=== PATIENT | female | born 2000 | race American Indian/Alaskan Native ===

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

== ENCOUNTER 2019-01-31 19:18 | Outpatient (CLI) | payer MEDICAID ==
[2019-01-31 21:19] LABS: Basophils % (Auto) 0.3 % (0.0-1.8); Eosinophils # (Auto) 0.1 K/mm3 (0.0-0.4); Eosinophils % (Auto) 0.6 % (0.0-4.3); Hematocrit 30.8 % (30.3-42.9); Hemoglobin 10.2 gm/dl (10.1-14.3); Lymphocytes # (Auto) 1.8 K/mm3 (1.2-5.4); Lymphocytes % (Auto) 21.3 % (13.4-35.0); Mean Corpuscular HGB Conc 33 % (30-34); Mean Corpuscular Volume 87 fl (79-97); Monocytes # (Auto) 0.7 K/mm3 (0.0-0.8); Monocytes % (Auto) 7.6 % (0.0-7.3); Platelet Count 200 K/mm3 (140-440); Red Blood Count 3.55 M/mm3 (3.65-5.03); Red Cell Distribution Width 13.5 % (13.2-15.2)
[2019-01-31 22:29] VITALS: BP 138/91
--- NOTE | 2019-01-31 22:40 | Ultrasound Report ---
ULTRASOUND OBSTETRIC LIMITED ULTRASOUND BIOPHYSICAL PROFILE INDICATION / CLINICAL INFORMATION: Rule out abruption. COMPARISON: None available. FINDINGS: BREATHING MOVEMENT = 2 GROSS BODY MOVEMENT = 2 TONE = 2 QUALITATIVE AMNIOTIC FLUID VOLUME = 2 TOTAL BIOPHYSICAL SCORE = 8/8 AMNIOTIC FLUID INDEX (cm) = 10.9 PRESENTATION: Cephalic. HEART RATE (beats per minute): 129 ADDITIONAL FINDINGS: Placenta is anterior right lateral grade 1 without previa. IMPRESSION: 1. Biophysical Score = 8/8 2. No placenta previa or abruption Signer Name: Robby Gant MD Signed: 01/31/2019 10:35 PM Workstation Name: [id number]
== END 2019-01-31 22:44 | disposition home or self-care (01) ==
LOC: TRG 19:18
PROVIDERS: ATTEND Obstetrics & Gynecology
DX: O46.93 Antepartum hemorrhage, unspecified, third trimester (principal); Z3A.34 34 weeks gestation of pregnancy
CPT/HCPCS: 36415; 76815; 76819; 85025; 86850; 86900; 86901

== ENCOUNTER 2019-02-28 16:10 | Inpatient (IN) | payer MEDICAID ==
[2019-02-28 17:25] LABS: Hematocrit 31.1 % (30.3-42.9); Hemoglobin 10.2 gm/dl (10.1-14.3); Mean Corpuscular HGB Conc 33 % (30-34); Mean Corpuscular Volume 86 fl (79-97); Platelet Count 191 K/mm3 (140-440); Red Blood Count 3.62 M/mm3 (3.65-5.03); Red Cell Distribution Width 15.5 % (13.2-15.2)
[2019-02-28 17:29] LABS: Bacteria,Urine 2+ /HPF (Negative); Bilirubin,Urine NEG (Negative); Blood,Urine NEG (Negative); Color,Urine Yellow (Yellow); Mucus,Urine FEW /HPF; Protein,Urine <15 mg/dL mg/dL (Negative); Urobilinogen,Urine < 2.0 mg/dL (<2.0)
[2019-02-28 17:38] LABS: Alanine Aminotransferase 20 units/L (7-56); Uric Acid 4.6 mg/dL (3.5-7.6)
--- NOTE | 2019-02-28 19:15 | Ultrasound Report ---
LIMITED OBSTETRIC ULTRASOUND WITH BIOPHYSICAL PROFILE HISTORY: well-being, JENNA COMPARISON: Obstetric ultrasound 01/31/2019 TECHNIQUE: Limited OB ultrasound performed with biophysical profile. FINDINGS: Gestation: Jennings intrauterine fetus. Presentation: Cephalic Amniotic Fluid Index: 18.6 cm ANATOMY: Detailed anatomic survey was not requested. Somatic activity is subjectively within normal limits. C ardiac activity is 144 beats per minute. BIOPHYSICAL PROFILE: Movement: 2 Tone: 2 Breathin Amniotic Fluid: 2 Total: 8 out of 8 IMPRESSION 1. Biophysical Profile 8 out of 8. 2. Amniotic fluid index of 18.6 cm. Signer Name: Sonya Agrawal MD Signed: 02/28/2019 7:10 PM Workstation Name: [id number]
[2019-02-28] MEDS ORDERED: DINOPROSTONE 10 MG VAG SUPP VG ONE (20:37)
[2019-02-28] MEDS ORDERED: NALOXONE 0.4 MG/1 ML INJ IV PRN (20:37)
[2019-02-28] MEDS ORDERED: MINERAL OIL 30 ML ORAL LIQD PO PRN (20:37)
[2019-02-28] MEDS ORDERED: ONDANSETRON 4 MG/2 ML INJ IV PRN (20:37)
[2019-02-28] MEDS ORDERED: ePHEDrine SULFATE 50 MG/1 ML INJ IV PRN (20:37)
[2019-02-28] MEDS ORDERED: TERBUTALINE 1 MG/1 ML INJ SUB-Q PRN (20:37)
[2019-02-28] MEDS ORDERED: BUTORPHANOL 2 MG/1 ML INJ IV PRN (20:37)
[2019-02-28] MEDS ORDERED: fentaNYL 100 MCG/2 ML INJ IV PRN (20:37)
[2019-02-28] MEDS ORDERED: TERBUTALINE 1 MG/1 ML INJ IVP PRN (20:37)
[2019-02-28] MEDS ORDERED: AMPICILLIN/NS 2 GM/100 ML 2 GM/100 ML BAG IV ONE (20:37)
[2019-02-28] MEDS ORDERED: LIDOCAINE (2%) 20 MG/1 ML VIAL 20 ML MDV INFILTRATI ONE (20:37)
[2019-02-28] MEDS ORDERED: OXYTOCIN 20 UNIT/1000ML DRIP 20 UNITS/1,000 ML BAG IV SCH (21:00)
[2019-02-28] MEDS: LACTATED RINGERS 1,000 ML IV SCH ×2 (21:41→22:24)
[2019-03-01] MEDS ORDERED: AMPICILLIN/NS 1 GM/50 ML 1 GM/50 ML BAG IV SCH (00:39)
[2019-03-01] MEDS ORDERED: OXYTOCIN DRIP 30,000 MILLIUNITS/500 ML BAG IV ONE (02:40)
[2019-03-01] MEDS ORDERED: AMPICILLIN/NS 2 GM/100 ML 2 GM/100 ML BAG IV ONE (02:58)
[2019-03-01] MEDS: LACTATED RINGERS 1,000 ML IV SCH (04:00)
[2019-03-01] MEDS ORDERED: BUPIVACAINE/PF (0.25%) 2.5 MG/ML 10 ML VIAL INFILTRATI ONE (04:04)
--- NOTE | 2019-03-01 04:29 | Anesthesia Consultation ---
Anesthesia Consult and Med Hx Date of service: 03/01/19 - Airway Anesthetic Teeth Evaluation: Good ROM Head & Neck: Adequate Mental/Hyoid Distance: Adequate Mallampati Class: Class II Intubation Access Assessment: Good - Pulmonary Exam CTA: Yes - Cardiac Exam Cardiac Exam: RRR - Pre-Operative Health Status ASA Pre-Surgery Classification: ASA2, Emergency Proposed Anesthetic Plan: Epidural - Pulmonary Hx Asthma: No - Cardiovascular System Hx Hypertension: No - Central Nervous System Hx Seizures: No Hx Psychiatric Problems: No - Endocrine Hx Renal Disease: No Hx Hypothyroidism: No Hx Hyperthyroidism: No - Hematic Hx Anemia: No Hx Sickle Cell Disease: No - Other Systems Hx Alcohol Use: No
[2019-03-01] MEDS ORDERED: NALOXONE 2 MG/2 ML INJ IV PRN (04:33)
[2019-03-01] MEDS ORDERED: ePHEDrine SULFATE 50 MG/1 ML INJ IV PRN (04:33)
[2019-03-01] MEDS ORDERED: fentaNYL-BUPIV 2 MCG/ML-0.125% 200 MCG/100 ML BAG EPIDURAL SCH (05:00)
[2019-03-01] MEDS ORDERED: OXYTOCIN DRIP 30 UNITS/500 ML BAG IV SCH (07:00)
--- NOTE | 2019-03-01 08:02 | Event Note ---
Date: 03/01/19 18y/o @ 38+2 weeks being induced for hypertension. Intrapartum course complicated by Cat II tracing with intermittent late decels. Patient is currently ruptured. Internal monitors placed. No pitocin given. Cervix 6-7cm. Oxygen placed on patient along with lateral tilt. Patient given terb. Discussed the possibility with patient of proceeding with if tracing does not demonstrate improvement.
--- NOTE | 2019-03-01 08:45 | History and Physical Report ---
History of Present Illness Date of examination: 03/01/19 Date of admission: 02/28/19 17:43 Chief complaint: Here for induction for obesity and gestational hypertension. History of present illness: Pt is a 18 yo at 38.3 weeks EGA who presents for induction of labor for obesity and gestational hypertension. She has [facility] care with [facility] and [facility] since 16 weeks EGA. She is GBS positive. Past History Past Medical History: no pertinent history Past Surgical History: no surgical history Family/Genetic History: diabetes, hypertension, cancer Social history: no significant social history - Obstetrical History Expected Date of Delivery: 03/12/19 Actual Gestation: 38 Week(s) 3 Day(s) : 2 Para: 0 Hx # Term Pregnancies: 0 Spontaneous Abortions: 1 Induced : 0 Number of Living Children: 0 Medications and Allergies Allergies Allergy/AdvReac Type Severity Reaction Status Date / Time No Known Allergies Allergy Verified 03/11/18 14:40 Home Medications Medication Instructions Recorded Confirmed Last Taken Type Fluticasone [Flonase] 1 spray NS QDAY #1 bottle 12/01/15 Unknown Rx Loratadine [Claritin] 10 mg PO DAILY #7 tablet 12/01/15 Unknown Rx predniSONE [Deltasone] 20 mg PO QAM #5 tab 12/01/15 Unknown Rx Ibuprofen [Motrin] 600 mg PO Q8H PRN #30 tablet 10/12/16 Unknown Rx Famotidine [Pepcid] 20 mg PO BID PRN #30 tablet 10/05/17 Unknown Rx Loratadine [Claritin] 10 mg PO DAILY #30 tablet 10/05/17 Unknown Rx Prednisone [predniSONE 10 mg 10 mg PO .TAPER #1 tab.ds.pk 10/05/17 Unknown Rx (6-Day Pack, 21 Tabs)] diphenhydrAMINE [Benadryl CAP] 25 mg PO Q8HR PRN #1 bottle 10/05/17 Unknown Rx Active Meds: Active Medications Butorphanol Tartrate (Stadol) 2 mg IV Q2H PRN PRN Reason: Pain , Severe (7-10) Last Admin: 03/01/19 01:36 Dose: 2 mg Documented by: Ephedrine Sulfate (Ephedrine Sulfate) 10 mg IV Q2M PRN PRN Reason: Hypotension Fentanyl (Sublimaze) 100 mcg IV Q2H PRN PRN Reason: Labor Pain Last Admin: 03/01/19 03:36 Dose: 100 mcg Documented by: Ampicillin Sodium (Ampicillin/Ns 1 Gm/50 Ml) 1 gm in 50 mls @ 100 mls/hr IV Q4HR ALFONSO; Protocol Last Admin: 03/01/19 07:50 Dose: 100 mls/hr Documented by: Lactated Ringer's (Lactated Ringers) 1,000 mls @ 125 mls/hr IV DIRECT ALFONSO Last Infusion: 03/01/19 04:30 Dose: 1,200 mls/hr Documented by: Oxytocin/Sodium Chloride (Pitocin/Ns 20 Unit/1000ml Drip) 20 units in 1,000 mls @ 125 mls/hr IV DIRECT ALFONSO Oxytocin/Sodium Chloride (Pitocin/Ns 30 Unit/500ml) 30 units in 500 mls @ 2 mls/hr IV TITR ALFONSO; Protocol Fentanyl/Bupivacaine/Sodium Chlor (Fentanyl-Bupiv 2 Mcg/Ml-0.125%) 200 mcg in 100 mls @ 12 mls/hr EPIDURAL TITR ALFONSO; Protocol Last Admin: 03/01/19 04:43 Dose: 12 mls/hr Documented by: Mineral Oil (Mineral Oil) 30 ml PO QHS PRN PRN Reason: Constipation Naloxone HCl (Naloxone) 0.2 mg IV Q5M PRN PRN Reason: Respiratory sedation Ondansetron HCl (Zofran) 4 mg IV Q8H PRN PRN Reason: Nausea And Vomiting Terbutaline Sulfate (Brethine) 0.25 mg IVP ONCE PRN PRN Reason: Hyperstimulation/Hypertonicity Review of Systems All systems: negative Cardiovascular: no chest pain Respiratory: no shortness of breath Genitourinary: other (positive movement) - Vital Signs Vital signs: Vital Signs Pulse BP Pulse Ox 136 H 121/80 98 02/28/19 16:30 02/28/19 16:30 02/28/19 16:30 Temp Pulse Resp BP Pulse Ox 98 F 118 H 18 131/76 100 03/01/19 04:00 03/01/19 08:37 03/01/19 00:00 03/01/19 04:35 03/01/19 08:37 - Physical Exam Lungs: Positive: Normal air movement Abdomen: Positive: normal appearance, soft Genitourinary (Female): Positive: normal external genitalia Vagina: Positive: normal moisture Uterus: Positive: enlarged Anus/Rectum: Positive: normal perianal skin Extremities: Positive: normal - Obstetrical FHR: category 2 Uterine Contraction Monitor Mode: External Cervical Dilatation: 7 Cervical Effacement Percentage: 90 station: -1 Uterine Contraction Frequency (min): 1-4 Uterine Contraction Duration: 60 Uterine Contraction Pattern: Irregular Results Result Diagrams: 02/28/19 16:50 02/28/19 16:50 Abnormal lab results 02/28/19 02/28/19 Range/Units 16:50 16:50 RBC 3.62 L (3.65-5.03) M/mm3 RDW 15.5 H (13.2-15.2) % Creatinine 0.6 L (0.7-1.2) mg/dL All other labs normal. Assessment and Plan A: 18 yo at 38.3 weeks EGA Gestational hypertension Morbid obesity P: Continue induction of labor Monitor FHT if non-reassuring FHT or no cervical change MD aware of FHT
[2019-03-01] MEDS ORDERED: LIDOCAINE MPF (2%) 20 MG/1 ML VIAL 5 ML ONE (10:02)
[2019-03-01] MEDS ORDERED: METOCLOPRAMIDE 10 MG/2 ML INJ ONE (10:07)
[2019-03-01] MEDS ORDERED: BICITRA ORAL LIQD 30ML ONE (10:07)
[2019-03-01] MEDS ORDERED: FAMOTIDINE 20 MG/2 ML INJ IV ONE (10:07)
[2019-03-01] MEDS ORDERED: ceFAZolin/Water 2 GM/20 ML 2 GM/20 ML SYRINGE IV ONE (10:34)
[2019-03-01] MEDS ORDERED: WATER FOR IRRIG STERILE 1,500 ML BOTTLE IR ONE (10:47)
[2019-03-01] MEDS ORDERED: SODIUM CHLORIDE 0.9% IRR 1,500 ML BOTTLE IR ONE (10:47)
[2019-03-01] MEDS ORDERED: KETOROLAC 30 MG/1 ML INJ ONE (10:49)
[2019-03-01] MEDS ORDERED: ceFAZolin 1 GM VIAL ONE (10:49)
[2019-03-01] MEDS ORDERED: ONDANSETRON 4 MG/2 ML INJ ONE (11:17)
--- NOTE | 2019-03-01 11:43 | Procedure Note ---
OB Delivery Note - Delivery Date of Delivery: 03/01/19 Surgeon: ENOCH LEAVITT Estimated blood loss: other (700 mL) - Section Preop diagnosis: arrest of dilation, nonreassuring FHR tracing Postop diagnosis: same section procedure: section, primary low transverse Disposition: PACU Narrative: Please see operative report. - A at 1 minute: 8 at 5 minutes: 9 Gender: Female (3195g (7lb 1 oz) @ 1056 am)
--- NOTE | 2019-03-01 11:44 | Operative Report ---
Operative Report Operative Report: Date of procedure: March 01, 2019 Preoperative diagnosis: 1) IUP at 38w3d 2)Nonreassuring status 3) Morbid Obesity BMI 46.6 4) Gestational HTN Postoperative diagnosis: Same Procedure:Primary low transverse section Surgeon: Leticia Chery M.D. Anesthesia: Regional Findings: 1) Viable female , Apgars 8 and 9, weight 3195g, (7 lb 1 oz) in cephalic presentation. Tight nuchal cord x 1, Body cord x 1 2) Normal-appearing uterus ovaries and tubes Estimated blood loss: 700 mL IV fluids:1100 mL Urine output: 100 mL, blood tinged prior to the procedure, and blood tinged at the end of the procedure Drains: Houser to gravity Specimens: Placenta Complications:None. Counts correct x 3 Disposition: Stable to PACU Indication for procedure: Pt is a 18 year old -[place] female at 38w3d was admitted for induction of labor for gestational hypertension. She progressed to 7 cm but began to have repetitive deep variable decelerations with each contraction without further descent of the fetus. The decision was to proceed with delivery. Operation in detail: After the risks, benefits, alternatives and complications were explained to the patient she gave informed consent for the procedure. She was subsequently taken to the operating room where regional anesthesia was noted to be adequate. She was subsequently placed in the dorsal supine position with leftward tilt and prepped and draped in a normal sterile fashion. heart tones were noted to be in the 120s prior to incision. A timeout was performed. A Pfannenstiel skin incision was made with the knife and carried down to the layer of the fascia with the Bovie. The fascia was incised in the midline and the fascial incision was extended bilaterally with the Bovie. The fascial incision was then stretched. The rectus muscles were then in the midline and partially transected for adequate visualization. The peritoneum was then entered sharply. The peritoneal incision was extended with good visualization of the bladder. The peritoneal incision was then stretched. An Cisco retractor was placed. The bladder blade was placed. The vesicouterine peritoneum was grasped with smooth pickups and incised with Metzenbaum scissors. Metzenbaum scissors were used to extend the incision bilaterally. The bladder flap was then created digitally and the bladder blade was replaced. A transverse incision was made in the lower uterine segment with a knife and extended bilaterally with the bandage scissors. The head was delivered without difficulty followed by shoulders and body. Tight nuchal cord was reduced. was bulb suctioned at delivery. The cord was clamped and cut and the was handed to NICU staff in attendance. Cord blood was collected. The placenta was then delivered manually. The uterus was then exteriorized and cleared of all clots and debris. The hysterotomy was then reapproximated with 0 Vicryl in a running locked fashion. A second layer of the same suture was used in imbricating fashion. The hysterotomy was inspected and hemostasis was noted. The gutters were irrigated and cleared of all clots and debris. The hysterotomy was again inspected and noted to be hemostatic. Surgicel was placed over the hysterotomy. The Cisco retractor was removed. The peritoneum was reapproximated with 2-0 Vicryl in a running fashion incorporating the rectus muscles. The fascia was reapproximated with 0 Vicryl in a running fashion. The subcutaneous tissue was reapproximated with 3-0 Vicryl in a running fashion. The skin was reapproximated with 3-0 Monocryl in a subcuticular fashion. The incision was then covered with steri strips and a pressure dressing. The procedure was then ended. The patient tolerated the procedure well and was taken to the PACU in stable condition. All instrument, lap, and needle counts were correct 3.
[2019-03-01] MEDS ORDERED: HYDROmorphone 1 MG/1 ML INJ IV PRN ×2 (11:59)
[2019-03-01] MEDS ORDERED: ONDANSETRON 4 MG/2 ML INJ IV PRN ×2 (11:59→13:26)
--- NOTE | 2019-03-01 12:00 | Anesthesia Day of Surgery ---
Anesthesia Day of Surgery - Day of Surgery Patient Examined: Yes Patient H&P Reviewed: Yes Patient is NPO: Yes Beta Blockers: No Cardiac Clearance: No Pulmonary Clearance: No Geovanni's Test: N/A
--- NOTE | 2019-03-01 12:01 | Post Anesthesia Evaluation ---
- Post Anesthesia Evaluation Patient Participated: Yes Airway Patent: Yes Stable Respiratory Function: Yes Nausea/Vomiting: No Temp > 96.8F: Yes Pain Manageable: Yes Adequeate Hydration: Yes Anesthesia Complications: No Block Receding Appropriately: Yes Patient on Ventilator: No
[2019-03-01 12:17] LABS: Hematocrit 28.6 % (30.3-42.9); Hemoglobin 9.3 gm/dl (10.1-14.3); Mean Corpuscular HGB Conc 33 % (30-34); Mean Corpuscular Volume 86 fl (79-97); Platelet Count 160 K/mm3 (140-440); Red Blood Count 3.34 M/mm3 (3.65-5.03)
[2019-03-01 12:45] LABS: Alanine Aminotransferase 17 units/L (7-56); Uric Acid 4.6 mg/dL (3.5-7.6)
[2019-03-01] MEDS ORDERED: OXYTOCIN 20 UNIT/1000ML DRIP 20 UNITS/1,000 ML BAG IV SCH (13:26)
[2019-03-01] MEDS ORDERED: MAGNESIUM HYDROXIDE (MOM) ORAL LIQD UDC PO PRN (13:26)
[2019-03-01] MEDS ORDERED: oxyCODONE /ACETAMINOPHEN 5-325MG TAB PO PRN (13:26)
[2019-03-01] MEDS ORDERED: LANOLIN/ZINC/DIMETHICONE (LANSINOH) 7 GM TP PRN (13:26)
[2019-03-01] MEDS ORDERED: SIMETHICONE 80 MG CHEW TAB PO PRN (13:26)
[2019-03-01] MEDS ORDERED: WITCH HAZEL/ GLYCERIN PAD TP PRN (13:26)
[2019-03-01] MEDS ORDERED: MORPHINE 2 MG/1 ML INJ IV PRN (13:26)
[2019-03-01] MEDS ORDERED: D5W/LACTATED RINGERS 1,000 ML IV SCH (13:26)
[2019-03-01] MEDS ORDERED: NALOXONE 0.4 MG/1 ML INJ IV PRN (13:26)
[2019-03-01] MEDS ORDERED: MORPHINE 4 MG/1 ML INJ IV PRN (13:26)
[2019-03-01] MEDS: KETOROLAC 30 MG/1 ML INJ IV SCH ×2 (14:05→19:53)
[2019-03-01] MEDS: ceFAZolin/NS 1 GM/50 ML 1 GM/50 ML BAG IV SCH (17:20)
[2019-03-02 00:50] LABS: Hemoglobin 8.6 gm/dl (10.1-14.3)
[2019-03-02] MEDS: ceFAZolin/NS 1 GM/50 ML 1 GM/50 ML BAG IV SCH (01:39)
[2019-03-02] MEDS: KETOROLAC 30 MG/1 ML INJ IV SCH ×2 (01:39→08:48)
[2019-03-02] MEDS ORDERED: TETANUS,DIPH,PERTUSS(ACELL) VACCINE 0.5 ML SYRINGE IM ONE (06:00)
--- NOTE | 2019-03-02 08:20 | Progress Note ---
Assessment and Plan POD1 s/p primary LTCS Gestational HTN Acute anemia- ferrous sulfate Needs breast feeding education Abdominal binder D/c to home on POD3 Subjective - Subjective Date of service: 03/02/19 Principal diagnosis: s/p primary LTCS Interval history: Pt is POD1 s/p primary LTCS for NRFHT Patient reports: appetite normal, voiding normally, pain well controlled, flatus, ambulating normally : doing well, bottle feeding (pt wants to breast feed) Objective - Vital Signs Latest vital signs: Vital Signs Temp Pulse Resp BP BP Pulse Ox 03/02/19 05:19 18 03/02/19 05:18 96 H 03/02/19 02:22 98.9 F 108 H 20 116/71 97 03/02/19 01:39 18 03/01/19 21:14 98.7 F 107 H 18 127/79 99 03/01/19 18:06 88 03/01/19 17:03 97.7 F 102 H 18 127/75 03/01/19 13:15 98.1 F 87 19 146/88 03/01/19 13:00 98.0 F 78 18 140/78 99 03/01/19 12:45 85 16 148/81 99 03/01/19 12:30 82 24 142/88 99 03/01/19 12:15 90 21 141/84 99 03/01/19 12:00 84 20 135/80 99 03/01/19 11:55 78 19 137/74 99 03/01/19 11:52 98.0 F 87 14 139/84 99 03/01/19 10:12 131 H 149/66 03/01/19 10:08 118 H 137/62 03/01/19 10:07 120 H 134/87 03/01/19 09:57 133 H 100 03/01/19 09:52 123 H 100 03/01/19 09:47 114 H 100 03/01/19 09:42 111 H 100 03/01/19 09:37 122 H 100 03/01/19 09:32 106 H 100 03/01/19 09:27 129 H 100 03/01/19 09:22 116 H 100 03/01/19 09:17 115 H 100 03/01/19 09:12 112 H 100 03/01/19 09:07 109 H 100 03/01/19 09:02 123 H 100 03/01/19 08:57 121 H 100 03/01/19 08:52 122 H 100 03/01/19 08:47 123 H 100 03/01/19 08:42 113 H 100 03/01/19 08:37 118 H 100 03/01/19 08:32 122 H 100 03/01/19 08:27 121 H 100 03/01/19 08:22 117 H 100 Intake and Output 03/01/19 03/02/19 03/02/19 23:59 07:59 15:59 Intake Total 530 360 Output Total 800 600 Balance -270 -240 Intake: IV 50 ANCEF/NS 1 GM/50 ML 1 gm 50 In 50 ml @ 100 mls/hr IV Q8H [facility] Rx#:[id number] Oral 480 Intake, Free Water 360 Output: Urine 800 600 Indwelling Catheter 800 100 Void 500 Other: Total, Intake Amount 480 Total, Output Amount 200 500 # Voids Indwelling Catheter 1 Void 1 - Exam Lungs: Present: Normal air movement Abdomen: Present: normal appearance, soft Uterus: Present: firm, fundal height at umbilicus Extremities: Present: normal Incision: Present: dressed - Labs Labs: Abnormal lab results 03/01/19 03/02/19 Range/Units 12:03 00:15 WBC 14.1 H (4.5-11.0) K/mm3 RBC 3.34 L (3.65-5.03) M/mm3 Hgb 9.3 L 8.6 L (10.1-14.3) gm/dl Hct 28.6 L 26.0 L (30.3-42.9) %
[2019-03-02] MEDS: PRENATAL VIT27-FE FUMARATE-FOLIC ACID VIT TAB PO SCH (08:49)
[2019-03-02] MEDS: FERROUS SULFATE 325 MG TAB PO SCH (08:49)
[2019-03-02] MEDS ORDERED: MEASLES, MUMPS & RUBELLA 12,500 UNIT/0.5 ML VACCINE SUB-Q ONE (11:50)
[2019-03-02] MEDS: IBUPROFEN 800 MG TAB PO PRN ×2 (17:08→23:28)
[2019-03-03] MEDS: IBUPROFEN 800 MG TAB PO PRN ×2 (05:50→18:05)
[2019-03-03] MEDS: PRENATAL VIT27-FE FUMARATE-FOLIC ACID VIT TAB PO SCH (10:24)
[2019-03-03] MEDS: FERROUS SULFATE 325 MG TAB PO SCH (10:24)
--- NOTE | 2019-03-03 14:30 | Progress Note ---
Assessment and Plan POD1 s/p primary LTCS Gestational HTN Acute anemia- ferrous sulfate Needs breast feeding education Abdominal binder discharge home tomorrow Subjective - Subjective Date of service: 03/03/19 Principal diagnosis: s/p primary LTCS Patient reports: appetite normal, voiding normally, pain well controlled, flatus, ambulating normally [place]: doing well Objective - Vital Signs Latest vital signs: Vital Signs Temp Pulse Resp BP Pulse Ox 03/03/19 08:32 98.8 F 80 18 131/91 96 03/03/19 01:20 98.1 F 104 H 20 119/70 99 03/02/19 17:23 98.5 F 95 H 18 148/93 99 Intake and Output 03/02/19 03/03/19 03/03/19 23:59 07:59 15:59 Intake Total 1080 240 480 Balance 1080 240 480 Intake: Oral 600 120 Intake, Free Water 480 240 360 Other: Total, Intake Amount 600 120 # Voids Void 5 1 1 - Exam Breasts: Present: normal Cardiovascular: Present: Regular rate, Normal S1 Lungs: Present: Clear to auscultation, Normal air movement Abdomen: Present: normal appearance, soft, normal bowel sounds. Absent: distention, tenderness Uterus: Present: normal, firm, fundal height below umbilicus. Absent: boggine ss, tenderness Extremities: Present: normal Deep Tendon Reflex Grade: Normal +2 Incision: Present: normal, dry, intact
[2019-03-04] MEDS: IBUPROFEN 800 MG TAB PO PRN (01:17)
[2019-03-04] MEDS ORDERED: FLUCONAZOLE 100 MG/10 ML ORAL SYRINGE PO SCH (10:00)
[2019-03-04] MEDS ORDERED: NITROFURANTOIN MONOHYD/M-CRYST 100 MG CAP PO SCH (10:00)
--- NOTE | 2019-03-04 10:01 | Discharge Summary ---
Providers - Providers Date of Admission: 02/28/19 17:43 Date of discharge: 03/04/19 Attending physician: ENOCH LEAVITT Primary care physician: ENOCH LEAVITT Hospitalization Reason for admission: IUP at term Delivery: Procedure: primary low transverse Episiotomy: none Laceration: none Incision: normal, dry, intact Other procedures: none complications: none Discharge diagnosis: IUP at term delivered [place] baby: female Hospital course: Jacinto was admitted and had for arrest of dilatation and did well PP. Hx of gest HTN. Patient to f/u in 1 week for BP check and evaluate incision Condition at discharge: Good Disposition: DC-01 TO HOME OR SELFCARE Plan - Discharge Medications Prescriptions: Ferrous Sulfate [Feosol 325 MG tab] 325 mg PO BID #30 tablet Nitrofurantoin [place]/M-Cryst [Macrobid CAP] 100 mg PO Q12HR #14 capsule Ibuprofen [Motrin] 600 mg PO Q8H PRN #30 tablet PRN Reason: Pain oxyCODONE /ACETAMINOPHEN [Percocet 5/325] 1 tab PO Q6HR PRN #40 tablet PRN Reason: Pain - Provider Discharge Summary Activity: routine, no sex for 6 weeks, no strenuous exercise Diet: routine Instructions: routine Additional instructions: [] Smoking cessation referral if applicable(refer to patient education folder for contact #) [] Refer to [facility] Booklet Call your doctor immediately for: * Fever > 100.5 * Heavy vaginal bleeding ( >1 pad per hour) * Severe persistent headache * Shortness of breath * Reddened, hot, painful area to leg or breast * Drainage or odor from incision. * Keep incision clean and dry at all times and follow doctor's instructions regarding bathing/showering - Follow up plan Follow up: ENOCH LEAVITT MD [Primary Care Provider] - 7 Days
[2019-03-04] MEDS: FERROUS SULFATE 325 MG TAB PO SCH (10:04)
[2019-03-04] MEDS: PRENATAL VIT27-FE FUMARATE-FOLIC ACID VIT TAB PO SCH (10:04)
[2019-03-04 14:30] VITALS: BP 135/70
== END 2019-03-04 15:25 | disposition home or self-care (01) | DRG 765 ==
LOC: TRG 16:10 → OBSVTOIN 17:43 → LD 17:43 → TRG 17:43 → OB 03-01 13:35
PROVIDERS: ADMIT Obstetrics & Gynecology; ATTEND Obstetrics & Gynecology
PROC: 10D00Z1 Extraction of Products of Conception, Low, Open Approach (ICD-10-PCS; principal; 2019-03-01)
PROC: 3E0234Z Introduction of Serum, Toxoid and Vaccine into Muscle, Percutaneous Approach (ICD-10-PCS; 2019-03-02)
DX: O13.4 Gestational [pregnancy-induced] hypertension without significant proteinuria, complicating childbirth (principal); D62 Acute posthemorrhagic anemia; O99.824 Streptococcus B carrier state complicating childbirth; O99.02 Anemia complicating childbirth; E66.01 Morbid (severe) obesity due to excess calories; O76 Abnormality in fetal heart rate and rhythm complicating labor and delivery; O62.0 Primary inadequate contractions; O99.214 Obesity complicating childbirth; O69.81X0 Labor and delivery complicated by cord around neck, without compression, not applicable or unspecified; O69.89X0 Labor and delivery complicated by other cord complications, not applicable or unspecified; O33.9 Maternal care for disproportion, unspecified; Z82.49 Family history of ischemic heart disease and other diseases of the circulatory system; Z37.0 Single live birth; Z3A.38 38 weeks gestation of pregnancy; Z83.3 Family history of diabetes mellitus; Z80.9 Family history of malignant neoplasm, unspecified; Z79.899 Other long term (current) drug therapy; Z23 Encounter for immunization
CPT/HCPCS: 36415; 76815; 76819; 81001; 82565; 83615; 84450; 84460; 84550; 85014; 85018; 85027; 86850; 86900; 86901; 87086; 88307; G0378; J0290; J0595; J0690; J1450; J1885; J2270; J2405; J2590; J2765; J3010; J3105; J7120; J7121

== ENCOUNTER 2019-03-10 03:56 | Emergency (ER) | payer MEDICAID ==
[2019-03-10 04:35] LABS: Basophils % (Auto) 0.4 % (0.0-1.8); Eosinophils # (Auto) 0.3 K/mm3 (0.0-0.4); Eosinophils % (Auto) 3.3 % (0.0-4.3); Hematocrit 31.5 % (30.3-42.9); Hemoglobin 10.4 gm/dl (10.1-14.3); Lymphocytes % (Auto) 19.7 % (13.4-35.0); Mean Corpuscular HGB Conc 33 % (30-34); Mean Corpuscular Volume 85 fl (79-97); Monocytes # (Auto) 0.7 K/mm3 (0.0-0.8); Monocytes % (Auto) 7.1 % (0.0-7.3); Platelet Count 294 K/mm3 (140-440); Red Blood Count 3.71 M/mm3 (3.65-5.03); Red Cell Distribution Width 16.4 % (13.2-15.2)
[2019-03-10 04:39] LABS: Alanine Aminotransferase 13 units/L (7-56); Albumin 3.6 g/dL (3.9-5); BUN/Creatinine Ratio 11; Blood Urea Nitrogen 10 mg/dL (7-17); Calcium 8.9 mg/dL (8.4-10.2); Hemolysis Index 2
[2019-03-10 04:47] LABS: Uric Acid 7.6 mg/dL (3.5-7.6)
[2019-03-10 05:14] LABS: Bacteria,Urine 1+ /HPF (Negative); Bilirubin,Urine NEG (Negative); Blood,Urine LG (Negative); Color,Urine Straw (Yellow); Mucus,Urine FEW /HPF; Protein,Urine <15 mg/dL mg/dL (Negative); Urobilinogen,Urine < 2.0 mg/dL (<2.0)
[2019-03-10 06:02] VITALS: BP 156/81
--- NOTE | 2019-03-10 07:26 | Emergency Department Report ---
ED General Adult HPI - General Chief complaint: High BP Stated complaint: BREAKOUT Time Seen by Provider: 03/10/19 07:02 Source: patient Mode of arrival: Ambulatory Limitations: No Limitations - History of Present Illness Initial comments: Radha is a very pleasant 18 -year-old female who recently delivered her baby girl Amber 9 days ago on the by section. Her personal management accountant is Dr. Risa Barriga with [facility]. She came to be evaluated for diffuse rash in the face arms upper torso and thighs. She attributed the rash to a new soap that she is using. She is not breast-feeding. Her daughter would not latch on. She did not have any complications during . She only had elevated blood pressure during labor. She denies headache. Denies abdominal pain. She denies leg swelling. She denies shortness of breath or throat swelling. She denies blurry vision. Rash began yesterday. It is itchy and red. No history of drug or food allergies. According to electronic record review progress notes highest BP reading documented to be 148/93. -: Gradual, days(s) (1) Quality: other (itchy) Consistency: constant Improves with: none Worsens with: none Associated Symptoms: denies other symptoms (chief) Treatments Prior to Arrival: other (ibuprofen) - Related Data Previous Rx's Medication Instructions Recorded Last Taken Type Fluticasone [Flonase] 1 spray NS QDAY #1 bottle 12/01/15 Unknown Rx Loratadine [Claritin] 10 mg PO DAILY #7 tablet 12/01/15 Unknown Rx predniSONE [Deltasone] 20 mg PO QAM #5 tab 12/01/15 Unknown Rx Ibuprofen [Motrin] 600 mg PO Q8H PRN #30 tablet 10/12/16 03/02/19 10:00 Rx Famotidine [Pepcid] 20 mg PO BID PRN #30 tablet 10/05/17 Unknown Rx Loratadine [Claritin] 10 mg PO DAILY #30 tablet 10/05/17 Unknown Rx Prednisone [predniSONE 10 mg 10 mg PO .TAPER #1 tab.ds.pk 10/05/17 Unknown Rx (6-Day Pack, 21 Tabs)] diphenhydrAMINE [Benadryl CAP] 25 mg PO Q8HR PRN #1 bottle 10/05/17 Unknown Rx oxyCODONE /ACETAMINOPHEN [Percocet 1 tab PO Q6HR PRN #40 tablet 03/02/19 Unknown Rx 5/325] Ferrous Sulfate [Feosol 325 MG tab] 325 mg PO BID #30 tablet 03/04/19 Unknown Rx Ibuprofen [Motrin] 600 mg PO Q8H PRN #30 tablet 03/04/19 Unknown Rx Nitrofurantoin Dane/M-Cryst 100 mg PO Q12HR #14 capsule 03/04/19 Unknown Rx [Macrobid CAP] Hydrocortisone [Hydrocortisone 1 applic TP BID 7 Days #1 oint...g. 03/10/19 Unknown Rx 2.5% OINT] diphenhydrAMINE [Benadryl CAP] 25 mg PO TID 4 Days #12 capsule 03/10/19 Unknown Rx Allergies Allergy/AdvReac Type Severity Reaction Status Date / Time No Known Allergies Allergy Verified 03/11/18 14:40 ED Review of Systems ROS: Stated complaint: BREAKOUT Other details as noted in HPI Comment: All other systems reviewed and negative Constitutional: denies: fever, malaise Respiratory: denies: cough, shortness of breath Gastrointestinal: denies: abdominal pain, nausea ED Past Medical Hx - Past Medical History Previous Medical History?: No Hx Hypertension: No Hx Diabetes: No Hx Deep Vein Thrombosis: No Hx Renal Disease: No Hx Sickle Cell Disease: No Hx Seizures: No Hx Asthma: No Hx HIV: No - Surgical History Past Surgical History?: Yes Additional Surgical History: NONE - Family History Family history: hypertension - Social History Smoking Status: Former Smoker Substance Use Type: None - Medications Home Medications: Home Medications Medication Instructions Recorded Confirmed Last Taken Type Fluticasone [Flonase] 1 spray NS QDAY #1 bottle 12/01/15 Unknown Rx Loratadine [Claritin] 10 mg PO DAILY #7 tablet 12/01/15 Unknown Rx predniSONE [Deltasone] 20 mg PO QAM #5 tab 12/01/15 Unknown Rx Ibuprofen [Motrin] 600 mg PO Q8H PRN #30 tablet 10/12/16 03/02/19 10:00 Rx Famotidine [Pepcid] 20 mg PO BID PRN #30 tablet 10/05/17 Unknown Rx Loratadine [Claritin] 10 mg PO DAILY #30 tablet 10/05/17 03/03/19 Unknown Rx Prednisone [predniSONE 10 mg 10 mg PO .TAPER #1 tab.ds.pk 10/05/17 Unknown Rx (6-Day Pack, 21 Tabs)] diphenhydrAMINE [Benadryl CAP] 25 mg PO Q8HR PRN #1 bottle 10/05/17 Unknown Rx oxyCODONE /ACETAMINOPHEN [Percocet 1 tab PO Q6HR PRN #40 tablet 03/02/19 Unknown Rx 5/325] Ferrous Sulfate [Feosol 325 MG tab] 325 mg PO BID #30 tablet 03/04/19 Unknown Rx Ibuprofen [Motrin] 600 mg PO Q8H PRN #30 tablet 03/04/19 Unknown Rx Nitrofurantoin [place]ane/M-Cryst 100 mg PO Q12HR #14 capsule 03/04/19 Unknown Rx [Macrobid CAP] Hydrocortisone [Hydrocortisone 1 applic TP BID 7 Days #1 oint...g. 03/10/19 Unknown Rx 2.5% OINT] diphenhydrAMINE [Benadryl CAP] 25 mg PO TID 4 Days #12 capsule 03/10/19 Unknown Rx ED Physical Exam - General Limitations: No Limitations General appearance: alert, in no apparent distress, other (pleasant appears comfortable no acute distress) - Head Head exam: Present: atraumatic, normocephalic - Eye Eye exam: Present: normal appearance - ENT ENT exam: Present: mucous membranes moist - Neck Neck exam: Present: normal inspection, full ROM - Respiratory Respiratory exam: Present: normal lung sounds bilaterally. Absent: respiratory distress, wheezes, rales, rhonchi - Cardiovascular Cardiovascular Exam: Present: regular rate, normal rhythm, normal heart sounds. Absent: systolic murmur, diastolic murmur, rubs, gallop - GI/Abdominal GI/Abdominal exam: Present: soft, normal bowel sounds. Absent: distended, tenderness, guarding, rebound - Extremities Exam Extremities exam: Present: normal inspection - Neurological Exam Neurological exam: Present: alert, oriented X3 - Psychiatric Psychiatric exam: Present: normal affect, normal mood - Skin Skin exam: Present: warm, other (erythematous papular sandpaper type rash involving the face anterior upper torso anterior arms anterior time). Absent: rash ED Course Vital Signs 03/10/19 03/10/19 04:00 06:01 Temperature 98.9 F Pulse Rate 89 96 H Respiratory 16 16 Rate Blood Pressure 154/105 Blood Pressure 156/81 [Left] O2 Sat by Pulse 100 100 Oximetry ED Medical Decision Making - Lab Data Result diagrams: 03/10/19 04:16 03/10/19 04:16 Laboratory Results - last 24 hr 03/10/19 03/10/19 03/10/19 04:16 04:16 04:16 WBC 10.1 RBC 3.71 Hgb 10.4 Hct 31.5 MCV 85 MCH 28 MCHC 33 RDW 16.4 H Plt Count 294 Lymph % (Auto) 19.7 Dane % (Auto) 7.1 Eos % (Auto) 3.3 Baso % (Auto) 0.4 Lymph # 2.0 Dane # 0.7 Eos # 0.3 Baso # 0.0 Seg Neutrophils % 69.5 Seg Neutrophils # 7.0 Sodium 142 Potassium 3.8 Chloride 102.4 Carbon Dioxide 25 Anion Gap 18 BUN 10 Creatinine 0.9 Estimated GFR > 60 BUN/Creatinine Ratio 11 Glucose 96 Uric Acid 7.6 Calcium 8.9 Total Bilirubin 0.30 AST 19 ALT 13 Alkaline Phosphatase 113 Lactate Dehydrogenase 252 H Total Protein 7.0 Albumin 3.6 L Albumin/Globulin Ratio 1.1 Urine Color Urine Turbidity Urine pH Ur Specific [place] Urine Protein Urine Glucose (UA) Urine Ketones Urine Blood Urine Nitrite Urine Bilirubin Urine Urobilinogen Ur Leukocyte Esterase Urine WBC (Auto) Urine RBC (Auto) U Epithel Cells (Auto) Urine Bacteria (Auto) Urine Mucus 03/10/19 04:59 WBC RBC Hgb Hct MCV MCH MCHC RDW Plt Count Lymph % (Auto) Dane % (Auto) Eos % (Auto) Baso % (Auto) Lymph # Dane # Eos # Baso # Seg Neutrophils % Seg Neutrophils # Sodium Potassium Chloride Carbon Dioxide Anion Gap BUN Creatinine Estimated GFR BUN/Creatinine Ratio Glucose Uric Acid Calcium Total Bilirubin AST ALT Alkaline Phosphatase Lactate Dehydrogenase Total Protein Albumin Albumin/Globulin Ratio Urine Color Straw Urine Turbidity Clear Urine pH 6.0 Ur Specific [place] 1.006 Urine Protein <15 mg/dl Urine Glucose (UA) Neg Urine Ketones Neg Urine Blood Lg Urine Nitrite Neg Urine Bilirubin Neg Urine Urobilinogen < 2.0 Ur Leukocyte Esterase Tr Urine WBC (Auto) 5.0 Urine RBC (Auto) 23.0 U Epithel Cells (Auto) < 1.0 Urine Bacteria (Auto) 1+ Urine Mucus Few - Medical Decision Making 1. Allergic contact dermatitis: Prescribed hydrocortisone cream, and Benadryl 2. Gestational hypertension: I spoke with Dr. Leavitt who managed Radha's with her colleague Dr. Barriga. Dr. Leavitt informed me that she did indeed have a documented history of gestational hypertension. Dr. Leavitt reviewed labs along with me. She agreed that patient did not have clinical evidence of preeclampsia. Dr. Leavitt requested that the patient come for blood pressure check in 3 days on Wednesday. I gave Ms. Samayoa extensive education regarding the risk of preeclampsia. She understands to return if she develops headache blurry vision abdominal pain or swelling. She understands return to emergency department for any new symptoms. I reviewed labs including CBC chemistry uric acid urinalysis which were unremarkable. LDH is minimally elevated. Critical care attestation.: If time is entered above; I have spent that time in minutes in the direct care of this critically ill patient, excluding procedure time. ED Disposition Clinical Impression: Allergic contact dermatitis, Gestational hypertension Disposition: TO HOME OR SELFCARE Is pt being admited?: No Does the pt Need Aspirin: No Condition: Stable Instructions: Contact Dermatitis (ED) Additional Instructions: Please follow up with Dr. Barriga or Dr. Leavitt on Wednesday for blood pressure check. Please return to the emergency department immediately if you develop headache, blurry vision, abdominal pain or swelling. Please return to emergency department if you develop any new symptoms. Prescriptions: diphenhydrAMINE [Benadryl CAP] 25 mg PO TID 4 Days #12 capsule Hydrocortisone [Hydrocortisone 2.5% OINT] 1 applic TP BID 7 Days #1 oint...g. Referrals: RISA BARRIGA MD [Staff Physician] - 2-3 Days ENOCH LEAVITT MD [Staff Physician] - 2-3 Days
== END 2019-03-10 07:40 | disposition home or self-care (01) ==
LOC: ED 03:56
DX: O99.73 Diseases of the skin and subcutaneous tissue complicating the puerperium (principal); L23.9 Allergic contact dermatitis, unspecified cause; O13.5 Gestational [pregnancy-induced] hypertension without significant proteinuria, complicating the puerperium; Z87.891 Personal history of nicotine dependence
CPT/HCPCS: 36415; 80053; 81001; 83615; 84550; 85025

== ENCOUNTER 2019-03-10 18:22 | Emergency (ER) | payer MEDICAID ==
--- NOTE | 2019-03-10 18:59 | Event Note ---
ED Screening Note Date of service: 03/10/19 Time: 18:57 ED Screening Note: 18 y o female presents to ED s/p 1 week c/s with BP elevation was seen earlier today for rash, and was told to retuen if worsening symptoms pt presents with intermittent left sided vance, denies blurry vision, n/v or abd pain This initial assessment/diagnostic orders/clinical plan/treatment(s) is/are subject to change based on patients health status, clinical progression and re- assessment by fellow clinical providers in the ED. Further treatment and workup at subsequent clinical providers discretion. Patient/guardian urged not to elope from the ED as their condition may be serious if not clinically assessed and man aged. Initial orders include:
--- NOTE | 2019-03-10 23:57 | Emergency Department Report ---
ED Headache HPI - General Chief Complaint: Headache Stated Complaint: HEADACHE Time Seen by Provider: 03/10/19 23:39 Source: patient Exam Limitations: no limitations - History of Present Illness Initial Comments: 18-year-old female with a past medical history of obesity presents to the hospital 10 days complaining of hypertension and headache. Patient was seen earlier today for a rash and it was also noted to be hypertensive. Her preeclamptic workup was negative. Patient was diagnosed with gestational hypertension was in a but denies a diagnosis of preeclampsia. Upon discharge this morning patient was informed to return if she has a headache. Patient states that after leaving department she's had a 1/10 intermittent in the left temporal headache. Headache has now resolved and she did not take any medications for pain. She denies blurred vision, nausea, vomiting, focal weakness, or focal numbness. She presents with lower extremity edema but states it is improving since delivery. She denies chest pain, shortness of breath, abdominal pain is not currently taking any medications for hypertension. She did receive an epidural during delivery. DEPUTY SHERIFF GENERALIST/BAILIFF: Dr Chery/dr Mark Barriga Allergies/Adverse Reactions: Allergies No Known Allergies Allergy (Verified 03/10/19 18:24) Home Medications: Ambulatory Orders Fluticasone [Flonase] 1 spray NS QDAY #1 bottle 12/01/15 Loratadine [Claritin] 10 mg PO DAILY #7 tablet 12/01/15 predniSONE [Deltasone] 20 mg PO QAM #5 tab 12/01/15 Ibuprofen [Motrin] 600 mg PO Q8H PRN #30 tablet 10/12/16 Famotidine [Pepcid] 20 mg PO BID PRN #30 tablet 10/05/17 Loratadine [Claritin] 10 mg PO DAILY #30 tablet 10/05/17 Prednisone [predniSONE 10 mg (6-Day Pack, 21 Tabs)] 10 mg PO .TAPER #1 tab.ds.pk 10/05/17 diphenhydrAMINE [Benadryl CAP] 25 mg PO Q8HR PRN #1 bottle 10/05/17 oxyCODONE /ACETAMINOPHEN [Percocet 5/325] 1 tab PO Q6HR PRN #40 tablet 03/02/19 Ferrous Sulfate [Feosol 325 MG tab] 325 mg PO BID #30 tablet 03/04/19 Ibuprofen [Motrin] 600 mg PO Q8H PRN #30 tablet 03/04/19 Nitrofurantoin [place]/M-Cryst [Macrobid CAP] 100 mg PO Q12HR #14 capsule 03/04/19 Hydrocortisone [Hydrocortisone 2.5% OINT] 1 applic TP BID 7 Days #1 oint...g. 03/10/19 diphenhydrAMINE [Benadryl CAP] 25 mg PO TID 4 Days #12 capsule 03/10/19 Nitrofurantoin [place]/M-Cryst [Macrobid CAP] 100 mg PO Q12HR #14 capsule 03/11/19 ED Review of Systems ROS: Stated complaint: HEADACHE Other details as noted in HPI ED Past Medical Hx - Past Medical History Hx Hypertension: No Hx Diabetes: No Hx Deep Vein Thrombosis: No Hx Renal Disease: No Hx Sickle Cell Disease: No Hx Seizures: No Hx Asthma: No Hx HIV: No - Surgical History Additional Surgical History: C SECTION - Social History Smoking Status: Never Smoker Substance Use Type: None - Medications Home Medications: Home Medications Medication Instructions Recorded Confirmed Last Taken Type Fluticasone [Flonase] 1 spray NS QDAY #1 bottle 12/01/15 Unknown Rx Loratadine [Claritin] 10 mg PO DAILY #7 tablet 12/01/15 Unknown Rx predniSONE [Deltasone] 20 mg PO QAM #5 tab 12/01/15 Unknown Rx Ibuprofen [Motrin] 600 mg PO Q8H PRN #30 tablet 10/12/16 03/02/19 10:00 Rx Famotidine [Pepcid] 20 mg PO BID PRN #30 tablet 10/05/17 Unknown Rx Loratadine [Claritin] 10 mg PO DAILY #30 tablet 10/05/17 03/03/19 Unknown Rx Prednisone [predniSONE 10 mg 10 mg PO .TAPER #1 tab.ds.pk 10/05/17 Unknown Rx (6-Day Pack, 21 Tabs)] diphenhydrAMINE [Benadryl CAP] 25 mg PO Q8HR PRN #1 bottle 10/05/17 Unknown Rx oxyCODONE /ACETAMINOPHEN [Percocet 1 tab PO Q6HR PRN #40 tablet 03/02/19 Unknown Rx 5/325] Ferrous Sulfate [Feosol 325 MG tab] 325 mg PO BID #30 tablet 03/04/19 Unknown Rx Ibuprofen [Motrin] 600 mg PO Q8H PRN #30 tablet 03/04/19 Unknown Rx Nitrofurantoin [place]/M-Cryst 100 mg PO Q12HR #14 capsule 03/04/19 Unknown Rx [Macrobid CAP] Hydrocortisone [Hydrocortisone 1 applic TP BID 7 Days #1 oint...g. 03/10/19 Unknown Rx 2.5% OINT] diphenhydrAMINE [Benadryl CAP] 25 mg PO TID 4 Days #12 capsule 03/10/19 Unknown Rx Nitrofurantoin [place]/M-Cryst 100 mg PO Q12HR #14 capsule 03/11/19 Unknown Rx [Macrobid CAP] ED Physical Exam - General Limitations: No Limitations - Other Other exam information: General: No acute distress Head: Atraumatic Eyes: normal appearance, pupils equal and reactive to light, extraocular movements intact ENT: Moist mucous membranes Neck: Normal appearance, no midline tenderness Chest: Clear to auscultation bilaterally CV: Regular rate and rhythm Abdomen: Soft, normal bowel sounds, nontender, nondistended, no rebound or guarding Back: Normal inspection Extremity: Normal inspection infection, full range of motion Neuro: Alert O x 3, no facial asymmetry, speech clear, no gross motor sensory deficit Psych: Appropriate behavior Skin: No rash ED Course Vital Signs 03/10/19 03/10/19 03/11/19 18:54 23:08 00:02 Temperature 98.7 F 98.6 F 98.6 F Pulse Rate 115 H 99 H 87 Respiratory 18 18 18 Rate Blood Pressure 156/102 142/102 Blood Pressure 149/91 [Right] O2 Sat by Pulse 100 100 100 Oximetry - Consultations Consultation #1: 03/11/19 01:36 case d/w dr chery, reviewed chart and bp. pt may be d/ari without bp meds at this time. agree no preeclampsia at this time. Continue follow up with ob on Wednesday as previously discussed. ED Medical Decision Making - Radiology Data Radiology results: report reviewed (ct head: naf) Critical Care Time: No Critical care attestation.: If time is entered above; I have spent that time in minutes in the direct care of this critically ill patient, excluding procedure time. ED Disposition Clinical Impression: Gestational hypertension, Headache, UTI (urinary tract infection) Disposition: TO HOME OR SELFCARE Is pt being admited?: No Does the pt Need Aspirin: No Condition: Stable Instructions: Hypertension (ED), Urinary Tract Infection in Women (ED), Pre- eclampsia and Eclampsia (ED), Acute Headache (ED) Additional Instructions: Take Motrin or Tylenol as needed for headache. Follow-up with the DEPUTY SHERIFF GENERALIST/BAILIFF doctor on Wednesday as discussed. Return if symptoms worsen as indicated by your discharge instructions. Prescriptions: Nitrofurantoin [place]/M-Cryst [Macrobid CAP] 100 mg PO Q12HR #14 capsule Referrals: SHAHLA BARRIGA MD [Staff Physician] - 03/13/19 Time of Disposition: 01:44
[2019-03-11 00:05] VITALS: BP 149/91
[2019-03-11 00:34] LABS: Bacteria,Urine 1+ /HPF (Negative); Bilirubin,Urine NEG (Negative); Blood,Urine LG (Negative); Color,Urine Yellow (Yellow); Protein,Urine <15 mg/dL mg/dL (Negative); Urobilinogen,Urine < 2.0 mg/dL (<2.0)
--- NOTE | 2019-03-11 01:07 | Cat Scan Report ---
Please see CT of the head report Signer Name: Irma Werner MD Signed: 03/11/2019 1:03 AM Workstation Name: [id number]
== END 2019-03-11 02:05 | disposition home or self-care (01) ==
LOC: ED 18:22
DX: I10 Essential (primary) hypertension (principal); N39.0 Urinary tract infection, site not specified; Z79.899 Other long term (current) drug therapy; Z79.1 Long term (current) use of non-steroidal anti-inflammatories (NSAID)
CPT/HCPCS: 70450; 81001; 99284

== ENCOUNTER 2020-10-14 18:13 | Emergency (ER) | payer MEDICAID, OTHER ==
[2020-10-14 18:23] VITALS: BP 144/67
--- NOTE | 2020-10-14 20:28 | Emergency Department Report ---
ED Rash HPI - HPI Chief Complaint: Skin Rash Stated Complaint: RASH Time Seen by Provider: 10/14/20 20:23 Duration: 3 Days Rash Symptoms: No Itching, No Facial Swelling, No Tongue/Oral Swelling, No Breathing Difficulties, No Choking Sensation, No Wheezing/Dyspnea, No Peeling, No Blistering, No Fever, No Lightheaded, No Malaise, No Myalgias Severity: mild Other History: 20-year-old -[place] female presents to the emergency room for rash that she has had for 4 days. Patient states that the rash is all over her body does not itch. She denies any fever. Denies any new shampoos soaps lotions clothes. This is a first-time patient seen for this. She denies any worsening or improving factors. Has no known drug allergies currently takes no medications on a daily basis. ED Review of Systems ROS: Stated complaint: RASH Other details as noted in HPI ED Past Medical Hx - Past Medical History Hx Hypertension: No Hx Diabetes: No Hx Deep Vein Thrombosis: No Hx Renal Disease: No Hx Sickle Cell Disease: No Hx Seizures: No Hx Asthma: No Hx HIV: No - Surgical History Additional Surgical History: C SECTION - Social History Smoking Status: Never Smoker Substance Use Type: None - Medications Home Medications: Home Medications Medication Instructions Recorded Confirmed Last Taken Type Fluticasone [Flonase] 1 spray NS QDAY #1 bottle 12/01/15 Unknown Rx Loratadine (Nf) [Claritin] 10 mg PO DAILY #7 tablet 12/01/15 Unknown Rx predniSONE [Deltasone] 20 mg PO QAM #5 tab 12/01/15 Unknown Rx Ibuprofen [Motrin] 600 mg PO Q8H PRN #30 tablet 10/12/16 03/02/19 10:00 Rx Famotidine [Pepcid] 20 mg PO BID PRN #30 tablet 10/05/17 Unknown Rx Loratadine (Nf) [Claritin] 10 mg PO DAILY #30 tablet 10/05/17 03/03/19 Unknown Rx Prednisone [predniSONE 10 mg 10 mg PO .TAPER #1 tab.ds.pk 10/05/17 Unknown Rx (6-Day Pack, 21 Tabs)] diphenhydrAMINE [Benadryl CAP] 25 mg PO Q8HR PRN #1 bottle 10/05/17 Unknown Rx oxyCODONE /ACETAMINOPHEN [Percocet 1 tab PO Q6HR PRN #40 tablet 03/02/19 Unknown Rx 5/325] Ferrous Sulfate [Feosol 325 MG tab] 325 mg PO BID #30 tablet 03/04/19 Unknown Rx Ibuprofen [Motrin] 600 mg PO Q8H PRN #30 tablet 03/04/19 Unknown Rx Nitrofurantoin [place] 100 mg PO Q12HR #14 capsule 03/04/19 Unknown Rx [Macrobid CAP] Hydrocortisone [Hydrocortisone 1 applic TP BID 7 Days #1 oint...g. 03/10/19 Unknown Rx 2.5% OINT] diphenhydrAMINE [Benadryl CAP] 25 mg PO TID 4 Days #12 capsule 03/10/19 Unknown Rx Nitrofurantoin [place] 100 mg PO Q12HR #14 capsule 03/11/19 Unknown Rx [Macrobid CAP] Clotrimazole/Betamethasone Dip 1 applicatio TP BID #30 cream..g. 10/14/20 Unknown Rx [Lotrisone Cream] Rash Exam - Exam General: Vital signs noted. No distress. Alert and acting appropriately. HEENT: No Periorbital Edema, No Conjuctival Injection, No Chemosis, No Perioral Edema, No Tongue Edema, No Uvular Edema, No Compromised Airway, No Drooling Lungs: Yes Good Air Exchange (Normal Breath Sounds), No Wheezes, No Ronchi, No Stridor, No Cough, No Labored Respirations, No Retractions, No Use of Accessory Muscles, No Other Abnormal Lung Sounds Heart: Yes Regular, No Murmur Skin: Yes Maculopapular Rash Other: Positive: Abdomen Normal, Neurologic Normal, Musculoskeletal Normal ED Course Vital Signs 10/14/20 18:22 Temperature 99.2 F Pulse Rate 99 H Respiratory 16 Rate Blood Pressure 144/67 [Left] O2 Sat by Pulse 100 Oximetry ED Medical Decision Making - Medical Decision Making 20-year-old -[place] female presents to the emergency room for rash that she has had for 4 days. Patient states that the rash is all over her body does not itch. She denies any fever. Denies any new shampoos soaps lotions clothes. This is a first-time patient seen for this. She denies any worsening or improving factors. Has no known drug allergies currently takes no medications on a daily basis. Patient will treat with Lotrisone for tinea versicolor. Referral to photovoltaic installer. Critical care attestation.: If time is entered above; I have spent that time in minutes in the direct care of this critically ill patient, excluding procedure time. ED Disposition Clinical Impression: Tinea corporis Disposition: [id number] TO HOME OR SELFCARE Is pt being admited?: No Does the pt Need Aspirin: No Condition: Stable Instructions: Tinea Versicolor Additional Instructions: Use cream as prescribed. Be sure to avoid dark sweaty close as this can make the rash worse. If no improvement follow-up with the primary care provider or photovoltaic installer. Prescriptions: Clotrimazole/Betamethasone Dip [Lotrisone Cream] 1 applicatio TP BID #30 cream..g. Referrals: [facility] [Provider Group] - 3-5 Days Forms: Work/School Release Form(ED)
== END 2020-10-14 20:45 | disposition home or self-care (01) ==
LOC: ED 18:13
DX: B35.4 Tinea corporis (principal); Z98.890 Other specified postprocedural states; Z79.899 Other long term (current) drug therapy
CPT/HCPCS: 99282

== ENCOUNTER 2021-07-15 17:10 | Outpatient (CLI) | payer OTHER ==
[2021-07-15] MEDS ORDERED: LACTATED RINGERS 1,000 ML IV ONE (17:52)
[2021-07-15 18:29] LABS: Bacteria,Urine 2+ /HPF (Negative); Bilirubin,Urine NEG (Negative); Blood,Urine NEG (Negative); Color,Urine Yellow (Yellow); Mucus,Urine FEW /HPF; Protein,Urine <15 mg/dL mg/dL (Negative); Urobilinogen,Urine < 2.0 mg/dL (<2.0)
[2021-07-15 18:43] LABS: Alanine Aminotransferase 7 units/L (7-56)
[2021-07-15] MEDS ORDERED: ONDANSETRON 4 MG/2 ML INJ IV ONE (18:58)
[2021-07-15] MEDS ORDERED: ACETAMINOPHEN 500 MG TAB PO ONE (18:58)
[2021-07-15 19:20] LABS: Hematocrit 31.2 % (30.3-42.9); Mean Corpuscular HGB Conc 32 % (30-34); Mean Corpuscular Volume 88 fl (79-97); Platelet Count 158 K/mm3 (140-440); Red Blood Count 3.54 M/mm3 (3.65-5.03); Red Cell Distribution Width 14.6 % (13.2-15.2)
[2021-07-15 20:14] VITALS: BP 118/58
== END 2021-07-15 20:46 | disposition home or self-care (01) ==
LOC: TRG 17:10 → APU 17:12 → TRG 20:46
PROVIDERS: ATTEND Obstetrics & Gynecology
DX: Z34.93 Encounter for supervision of normal pregnancy, unspecified, third trimester (principal); Z3A.37 37 weeks gestation of pregnancy
CPT/HCPCS: 36415; 81001; 82565; 83615; 84450; 84460; 84550; 85027; J2405